=== PATIENT | female | born 1980 | race American Indian/Alaskan Native ===

== ENCOUNTER 2016-06-30 04:07 | Emergency (ER) | payer MEDICAID ==
[2016-06-30 05:10] LABS: Basophils % (Auto) 0.4 % (0.0-1.8); Eosinophils % (Auto) 0.7 % (0.0-4.3); Hematocrit 38.4 % (30.3-42.9); Hemoglobin 12.5 gm/dl (10.1-14.3); Mean Corpuscular HGB Conc 33 % (30-34); Mean Corpuscular Hemoglobin 29 pg (28-32); Mean Corpuscular Volume 89 fl (79-97); Platelet Count 392 K/mm3 (140-440); Red Cell Distribution Width 15.9 % (13.2-15.2); White Blood Count 13.2 K/mm3 (4.5-11.0)
[2016-06-30 05:29] LABS: Alanine Aminotransferase 9 units/L (7-56); Albumin/Globulin Ratio 1.3 %; Alkaline Phosphatase 56 units/L (35-129); Bilirubin,Total < 0.2 mg/dL (0.1-1.2); Blood Urea Nitrogen 10 mg/dL (7-17); Calcium 10.1 mg/dL (8.4-10.2); Carbon Dioxide 24 mmol/L (22-30); Chloride 99.3 mmol/L (98-107); Glucose 90 mg/dL (65-100); Lipase 42 units/L (13-60); Potassium 4.3 mmol/L (3.6-5.0); Sodium 138 mmol/L (137-145); Total Protein 7.2 g/dL (6.3-8.2)
[2016-06-30 05:45] LABS: Anion Gap 19 mmol/L
[2016-06-30 08:13] LABS: Bilirubin,Urine NEG (Negative); Blood,Urine LG (Negative); Ketones,Urine NEG (Negative); Leukocyte Esterase,Urine SM (Negative); Nitrite,Urine NEG (Negative); Urobilinogen,Urine < 2.0 mg/dL (<2.0)
[2016-06-30 08:15] LABS: RBC,Urine > 182.0 /HPF (0.0-6.0)
--- NOTE | 2016-06-30 11:06 | Emergency Department Report ---
ED Abdominal Pain HPI - General Chief Complaint: Abdominal Pain Stated Complaint: ABD PAIN Time Seen by Provider: 06/30/16 11:02 Source: patient, EMS Mode of arrival: Stretcher Limitations: No Limitations - History of Present Illness Initial Comments: The patient is a poor historian. However from what I can distill, she has had suprapubic pain for the last 2 days associated with vaginal bleeding. She has had dysmenorrhea before. However she states that this is worse than usual. She gives a history of a "miscarriage in 2001". I believe in 2005 she is saying that she had methotrexate for an ectopic . In 2010 it sounds like she had laparoscopic removal of an ectopic . 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 She states that she has not had an ultrasound test in many years. She called EMS today because the pain was "worse than usual". She denies any abdominal distention nausea vomiting diarrhea signs of GI bleeding or fever or chills. MD Complaint: abdominal pain -: Gradual, days(s) Location: suprapubic Radiation: none Migration to: no migration Severity: severe Quality: aching Consistency: constant Improves With: nothing Worsens With: nothing Context: other (current menses. However, patient cannot recall her last period prior.) Associated Symptoms: other (vag bleeding) - Related Data LMP (females 10-50): other (does not recall) Home Medications Medication Instructions Recorded Confirmed Last Taken LORazepam [Ativan] 1 mg PO QHS 07/09/14 07/09/14 Unknown Levothyroxine [Synthroid] 200 mcg PO QAM 07/09/14 07/09/14 Unknown Previous Rx's Medication Instructions Recorded Last Taken Type Famotidine [Pepcid] 20 mg PO BID #40 tablet 07/09/14 Unknown Rx Hyoscyamine Subl [Levsin Sl] 0.125 mg SL Q4HR PRN #20 tablet 07/09/14 Unknown Rx Ondansetron [Zofran] 4 mg PO Q6HR PRN #20 tablet 07/09/14 Unknown Rx ALBUTEROL Inhaler [Proair] 2 puff IH QID PRN #1 inhalation 03/29/16 Unknown Rx Azithromycin [Zithromax Z-JOHN] 250 mg PO DAILY #6 tab 03/29/16 Unknown Rx Fluticasone [Flonase] 1 spray NS QDAY #1 bottle 03/29/16 Unknown Rx methylPREDNISolone [Medrol] 4 mg PO QAM #1 dosepack 03/29/16 Unknown Rx HYDROcodone/APAP 5-325 [[place] 1 each PO Q4HR PRN #14 tablet 06/30/16 Unknown Rx 5/325] Allergies Allergy/AdvReac Type Severity Reaction Status Date / Time Penicillins Allergy Swelling Verified 03/29/16 12:15 ED Review of Systems ROS: Stated complaint: ABD PAIN Other details as noted in HPI Constitutional: denies: chills, fever Eyes: denies: eye pain, eye discharge, vision change ENT: denies: ear pain, throat pain Respiratory: denies: cough, shortness of breath, wheezing Cardiovascular: denies: chest pain, palpitations Endocrine: no symptoms reported Gastrointestinal: denies: abdominal pain, nausea, diarrhea Genitourinary: abnormal menses. denies: urgency, dysuria, discharge Musculoskeletal: denies: back pain, joint swelling, arthralgia Skin: denies: rash, lesions Neurological: denies: headache, weakness, paresthesias Psychiatric: denies: anxiety, depression Hematological/Lymphatic: denies: easy bleeding, easy bruising ED Past Medical Hx - Past Medical History Previous Medical History?: No Hx Psychiatric Treatment: Yes (ANXIETY) Additional medical history: Hypothyroid - Surgical History Past Surgical History?: Yes Additional Surgical History: Ectopic. Thyroidectomy - Social History Smoking Status: Never Smoker Substance Use Type: Alcohol - Medications Home Medications: Home Medications Medication Instructions Recorded Confirmed Last Taken Type Famotidine [Pepcid] 20 mg PO BID #40 tablet 07/09/14 Unknown Rx Hyoscyamine Subl [Levsin Sl] 0.125 mg SL Q4HR PRN #20 tablet 07/09/14 Unknown Rx LORazepam [Ativan] 1 mg PO QHS 07/09/14 07/09/14 Unknown History Levothyroxine [Synthroid] 200 mcg PO QAM 07/09/14 07/09/14 Unknown History Ondansetron [Zofran] 4 mg PO Q6HR PRN #20 tablet 07/09/14 Unknown Rx ALBUTEROL Inhaler [Proair] 2 puff IH QID PRN #1 inhalation 03/29/16 Unknown Rx Azithromycin [Zithromax Z-JOHN] 250 mg PO DAILY #6 tab 03/29/16 Unknown Rx Fluticasone [Flonase] 1 spray NS QDAY #1 bottle 03/29/16 Unknown Rx methylPREDNISolone [Medrol] 4 mg PO QAM #1 dosepack 03/29/16 Unknown Rx HYDROcodone/APAP 5-325 [[place] 1 each PO Q4HR PRN #14 tablet 06/30/16 Unknown Rx 5/325] ED Physical Exam - General Limitations: No Limitations General appearance: alert, in no apparent distress - Head Head exam: Present: atraumatic, normocephalic - Eye Eye exam: Present: normal appearance - ENT ENT exam: Present: mucous membranes moist - Neck Neck exam: Present: normal inspection - Respiratory Respiratory exam: Present: normal lung sounds bilaterally. Absent: respiratory distress - Cardiovascular Cardiovascular Exam: Present: regular rate, normal rhythm. Absent: systolic murmur, diastolic murmur, rubs, gallop - GI/Abdominal GI/Abdominal exam: Present: soft, tenderness (suprapubic region), normal bowel sounds. Absent: distended, guarding, rebound, rigid - Extremities Exam Extremities exam: Present: normal inspection - Back Exam Back exam: Present: normal inspection - Neurological Exam Neurological exam: Present: alert, oriented X3, CN II-XII intact. Absent: motor sensory deficit - Psychiatric Psychiatric exam: Present: normal affect, normal mood - Skin Skin exam: Present: warm, dry, intact, normal color. Absent: rash ED Course Vital Signs 06/30/16 06/30/16 06/30/16 04:20 11:00 11:46 Temperature 98.5 F Pulse Rate 87 90 Respiratory 22 16 16 Rate Blood Pressure 138/96 Blood Pressure 138/96 112/76 [Left] O2 Sat by Pulse 100 99 Oximetry - Reevaluation(s) Reevaluation #1: Pain has improved. Patient is stable and appropriate for a patient follow-up. 06/30/16 13:35 ED Medical Decision Making - Lab Data Result diagrams: 06/30/16 04:36 06/30/16 04:36 Laboratory Results - last 24 hr 06/30/16 06/30/16 06/30/16 04:36 04:36 04:36 WBC 13.2 H RBC 4.30 Hgb 12.5 Hct 38.4 MCV 89 MCH 29 MCHC 33 RDW 15.9 H Plt Count 392 Lymph % (Auto) 27.2 [place] % (Auto) 6.1 Eos % (Auto) 0.7 Baso % (Auto) 0.4 Lymph # 3.6 [place] # 0.8 Eos # 0.1 Baso # 0.1 Seg Neutrophils % 65.6 Seg Neutrophils # 8.7 H Sodium 138 Potassium 4.3 Chloride 99.3 Carbon Dioxide 24 Anion Gap 19 BUN 10 Creatinine 0.8 Estimated GFR > 60 BUN/Creatinine Ratio 12.50 Glucose 90 Calcium 10.1 Total Bilirubin < 0.2 AST 11 ALT 9 Alkaline Phosphatase 56 Total Protein 7.2 Albumin 4.0 Albumin/Globulin Ratio 1.3 Lipase 42 HCG, Qual Negative Urine Color Urine Turbidity Urine pH Ur Specific [place] Urine Protein Urine Glucose (UA) Urine Ketones Urine Blood Urine Nitrite Ur Reducing Substances Urine Bilirubin Urine Ictotest Urine Urobilinogen Ur Leukocyte Esterase Urine WBC (Auto) Urine RBC (Auto) Urine HCG, Qual 06/30/16 07:46 WBC RBC Hgb Hct MCV MCH MCHC RDW Plt Count Lymph % (Auto) [place] % (Auto) Eos % (Auto) Baso % (Auto) Lymph # [place] # Eos # Baso # Seg Neutrophils % Seg Neutrophils # Sodium Potassium Chloride Carbon Dioxide Anion Gap BUN Creatinine Estimated GFR BUN/Creatinine Ratio Glucose Calcium Total Bilirubin AST ALT Alkaline Phosphatase Total Protein Albumin Albumin/Globulin Ratio Lipase HCG, Qual Urine Color Yellow Urine Turbidity Cloudy Urine pH 9.0 H Ur Specific [place] 1.016 Urine Protein 30 mg/dl Urine Glucose (UA) Neg Urine Ketones Neg Urine Blood Lg Urine Nitrite Neg Ur Reducing Substances Not Reportable Urine Bilirubin Neg Urine Ictotest Not Reportable Urine Urobilinogen < 2.0 Ur Leukocyte Esterase Sm Urine WBC (Auto) 12.0 H Urine RBC (Auto) > 182.0 Urine HCG, Qual Negative Laboratory Results - last 24 hr 06/30/16 06/30/16 06/30/16 04:36 04:36 04:36 WBC 13.2 H RBC 4.30 Hgb 12.5 Hct 38.4 MCV 89 MCH 29 MCHC 33 RDW 15.9 H Plt Count 392 Lymph % (Auto) 27.2 [place] % (Auto) 6.1 Eos % (Auto) 0.7 Baso % (Auto) 0.4 Lymph # 3.6 [place] # 0.8 Eos # 0.1 Baso # 0.1 Seg Neutrophils % 65.6 Seg Neutrophils # 8.7 H Sodium 138 Potassium 4.3 Chloride 99.3 Carbon Dioxide 24 Anion Gap 19 BUN 10 Creatinine 0.8 Estimated GFR > 60 BUN/Creatinine Ratio 12.50 Glucose 90 Calcium 10.1 Total Bilirubin < 0.2 AST 11 ALT 9 Alkaline Phosphatase 56 Total Protein 7.2 Albumin 4.0 Albumin/Globulin Ratio 1.3 Lipase 42 HCG, Qual Negative Urine Color Urine Turbidity Urine pH Ur Specific [place] Urine Protein Urine Glucose (UA) Urine Ketones Urine Blood Urine Nitrite Ur Reducing Substances Urine Bilirubin Urine Ictotest Urine Urobilinogen Ur Leukocyte Esterase Urine WBC (Auto) Urine RBC (Auto) Urine HCG, Qual 06/30/16 07:46 WBC RBC Hgb Hct MCV MCH MCHC RDW Plt Count Lymph % (Auto) [place] % (Auto) Eos % (Auto) Baso % (Auto) Lymph # [place] # Eos # Baso # Seg Neutrophils % Seg Neutrophils # Sodium Potassium Chloride Carbon Dioxide Anion Gap BUN Creatinine Estimated GFR BUN/Creatinine Ratio Glucose Calcium Total Bilirubin AST ALT Alkaline Phosphatase Total Protein Albumin Albumin/Globulin Ratio Lipase HCG, Qual Urine Color Yellow Urine Turbidity Cloudy Urine pH 9.0 H Ur Specific [place] 1.016 Urine Protein 30 mg/dl Urine Glucose (UA) Neg Urine Ketones Neg Urine Blood Lg Urine Nitrite Neg Ur Reducing Substances Not Reportable Urine Bilirubin Neg Urine Ictotest Not Reportable Urine Urobilinogen < 2.0 Ur Leukocyte Esterase Sm Urine WBC (Auto) 12.0 H Urine RBC (Auto) > 182.0 Urine HCG, Qual Negative - Radiology Data Radiology results: report reviewed interpreted by me: Ultrasound shows some ovarian calcifications. No fluid in the cul-de-sac. No acute process. Fibroid uterus. Critical care attestation.: If time is entered above; I have spent that time in minutes in the direct care of this critically ill patient, excluding procedure time. ED Disposition Clinical Impression: Pelvic pain, Dysmenorrhea Fibroids Qualifiers: Uterine leiomyoma location: unspecified location Qualified Code(s): D25.9 - Leiomyoma of uterus, unspecified Disposition: DISCHARGED TO HOME OR SELFCARE Is pt being admited?: No Does the pt Need Aspirin: No Condition: Stable Instructions: Abdominal Pain (ED), Dysfunctional Uterine Bleeding (ED), Uterine Fibroids (ED) Additional Instructions: Follow-up with light cycle physician. Return any acute change or problem. Prescriptions: HYDROcodone/APAP 5-325 [[place] 5/325] 1 each PO Q4HR PRN #14 tablet PRN Reason: Pain Referrals: PRIMARY CARE, [Primary Care Provider] - 3-5 Days [facility] [Provider Group] - 3-5 Days Time of Disposition: 13:36
[2016-06-30] MEDS ORDERED: ZOFRAN IV ONE (11:22)
[2016-06-30] MEDS ORDERED: MORPHINE IV ONE (11:22)
[2016-06-30] MEDS ORDERED: NACL 0.9% 1000 ML 1,000 ML IV ONE (11:23)
--- NOTE | 2016-06-30 12:37 | Ultrasound Report ---
Pelvic and transvaginal sonography: History: Vaginal bleeding. Suprapubic pain. Findings: Uterus measures 9.9 x 4.5 x 6.3 cm. Endometrial thickness is 9.9 mm. No fluid in the endometrium. Fibroid right side of the fundus of uterus measures 3.6 x 2.9 x 2.2 cm. Right ovary 2.7 x 2.1 x 2.3 cm. No mass. Scattered echogenic areas identified. Left ovary 3.7 x 1.8 x 2.8 cm. No mass. Scattered echogenic areas are identified. No fluid in the cul-de-sac. Impression: Fibroid uterus. Scattered echogenic areas at the right and left ovary may represent calcifications. If clinically indicated further evaluation may be advised.
[2016-06-30] MEDS ORDERED: NORCO 5/325 PO ONE (13:38)
[2016-06-30 13:49] VITALS: BP 124/78
== END 2016-06-30 13:49 | disposition home or self-care (01) ==
LOC: ED 04:07
DX: N94.6 Dysmenorrhea, unspecified (principal); D25.9 Leiomyoma of uterus, unspecified; F41.9 Anxiety disorder, unspecified; E03.9 Hypothyroidism, unspecified; Z90.89 Acquired absence of other organs; Z88.0 Allergy status to penicillin
CPT/HCPCS: 36415; 76830; 76856; 80053; 81001; 81025; 83690; 84703; 85025; 96361; 96374; 96375; 99284; J2270; J2405; J7030